=== PATIENT | male | born 1965 | race Caucasian/White ===

== ENCOUNTER 2017-08-16 19:40 | Emergency (ER) | payer OTHER ==
[2017-08-16] MEDS ORDERED: GLUCAGON 1 MG/ML VIAL IVP STA (20:00)
--- NOTE | 2017-08-16 20:01 | ED Physician Documentation ---
PD HPI CHEST PAIN - Stated complaint Stated Complaint: FB IN THROAT/SOA - Chief complaint Chief Complaint: Resp - History obtained from History obtained from: Patient - History of Present Illness Timing - onset: Other (He has a history of esophageal stenosis status post dilation about 4 years ago. He is a sinus infection and was taking some Advil p.m. tonight and feels like it is stuck, at the level of mid sternum. He is able to tolerate liquids but just barely.) Review of Systems Constitutional: denies: Fever, Chills Respiratory: denies: Dyspnea, Cough GI: denies: Abdominal Pain, Abdominal Swelling, Nausea, Vomiting PD PAST MEDICAL HISTORY - Present Medications Home Medications: Ambulatory Orders Medication Instructions Recorded Confirmed Albuterol Sulf [Ventolin Hfa 1 - 2 puffs INH Q4H 08/16/17 08/16/17 Inhaler] Amox/Clav 875/125 [Augmentin 1 tab PO BID 08/16/17 08/16/17 875/125] Beclomethasone 80 Mcg [Qvar 80] 1 puffs INH BID 08/16/17 08/16/17 Pantoprazole Sodium 40 mg PO DAILY 08/16/17 08/16/17 - Allergies Allergies/Adverse Reactions: Allergies Allergy/AdvReac Type Severity Reaction Status Date / Time No Known Drug Allergies Allergy Verified 08/16/17 19:48 - Social History Does the pt smoke?: No Smoking Status: Never smoker - Immunizations Immunizations are current?: Yes PD ED PE NORMAL - Vitals Vital signs reviewed: Yes - General General: Alert and oriented X 3, No acute distress - HEENT HEENT: Pharynx benign, Other (Voice is normal) - Cardiac Cardiac: RRR, No murmur - Respiratory Respiratory: No respiratory distress, Clear bilaterally - Abdomen Abdomen: Non tender - Neuro Neuro: Alert and oriented X 3, Normal speech Results - Vitals Vitals: Vital Signs - 24 hr 08/16/17 19:44 Temperature 36.4 C L Heart Rate 107 H Respiratory 18 Rate Blood Pressure 154/84 H O2 Saturation 98 Oxygen O2 Source Room air PD MEDICAL DECISION MAKING - ED course ED course: 51-year-old gentleman with pill esophageal foreign body, had a little relief with glucagon and then complete relief after nitroglycerin and tolerating oral fluids. He has a history of esophageal strictures and he was advised to follow- up with his GI doctor for reevaluation. - Sepsis Event Vital Signs: Vital Signs - 24 hr 08/16/17 19:44 Temperature 36.4 C L Heart Rate 107 H Respiratory 18 Rate Blood Pressure 154/84 H O2 Saturation 98 Oxygen O2 Source Room air Departure - Departure Disposition: 01 Home, Self Care Clinical Impression: Esophageal stricture, Pill esophagitis Condition: Good Record reviewed to determine appropriate education?: Yes Comments: Eat soft and liquid foods and crush your pills. Follow-up with your doctor for referral to GI. Return if worse. Your blood pressure was elevated today on check into the emergency department. This does not mean that you have hypertension, it is a common phenomenon to come to the emergency department and have elevated blood pressure. I recommend that you see your primary care physician within the week to have it rechecked when you are feeling better.
[2017-08-16] MEDS ORDERED: WATER FOR INJECTION,STERILE 10 ML ONE (20:15)
[2017-08-16] MEDS ORDERED: NITROGLYCERIN SL 0.4 MG TABLET SL STA (20:25)
[2017-08-16 21:43] VITALS: BP 142/104
== END 2017-08-16 21:43 | disposition home or self-care (01) ==
LOC: ED 19:40
DX: K22.2 Esophageal obstruction (principal); K20.8 Other esophagitis; Z87.19 Personal history of other diseases of the digestive system; R03.0 Elevated blood-pressure reading, without diagnosis of hypertension
CPT/HCPCS: 96374; 99283; A9270

== ENCOUNTER 2017-08-21 08:00 | Outpatient (CLI) | payer OTHER ==
[2017-08-21 13:03] LABS: BASOPHILS % (AUTO) 0.5 %; EOSINOPHILS % (AUTO) 0.7 %; HGB - HEMOGLOBIN 16.9 g/dL (14.0-18.0); LYMPHOCYTES # (AUTO) 0.9 10^3/uL (1.5-3.5); LYMPHOCYTES % (AUTO) 20.5 %; MEAN CORPUSCULAR HEMOGLOBIN 32.1 pg (27.0-31.0); MEAN CORPUSCULAR HGB CONC 33.6 g/dL (32.0-36.0); MEAN CORPUSCULAR VOLUME 95.5 fL (80.0-94.0); MEAN PLATELET VOLUME 9.4 fL (7.4-11.4); MONOCYTES # (AUTO) 0.3 10^3/uL (0.0-1.0); MONOCYTES % (AUTO) 7.6 %; NEUTROPHILS # (AUTO) 3.1 10^3/uL (1.5-6.6); NEUTROPHILS % (AUTO) 70.7 %; PLT - PLATELET COUNT 187 10^3/uL (130-450); RED BLOOD COUNT 5.28 10^6/uL (4.70-6.10); WHITE BLOOD COUNT 4.4 x10^3/uL (4.8-10.8)
[2017-08-21 13:21] LABS: ALBUMIN 4.7 g/dL (3.2-5.5); ALBUMIN/GLOBULIN RATIO 1.7 (1.0-2.2); ALKALINE PHOSPHATASE 59 IU/L (42-121); ALT ALANINE AMINOTRANSFERASE 23 IU/L (10-60); AST ASPARTATE AMINOTRANSFERASE 22 IU/L (10-42); BILIRUBIN,TOTAL 0.8 mg/dL (0.2-1.0); BUN - BLOOD UREA NITROGEN 17 mg/dL (6-20); CARBON DIOXIDE - CO2 28 mmol/L (21-32); CHLORIDE 102 mmol/L (101-111); CHOL/HDL RATIO 6.2 (<5.0); CHOLESTEROL 240 mg/dL; CREATININE 1.2 mg/dL (0.6-1.2); GFR - MDRD 64 (>89); GLUCOSE 119 mg/dL (70-100); HDL CHOLESTEROL 39 mg/dL; LDL CHOLESTEROL,CALCULATED 161 mg/dL; LDL/HDL RATIO 4.1 (<3.6); SODIUM 138 mmol/L (135-145); TOTAL PROTEIN 7.5 g/dL (6.7-8.2); VLDL CHOLESTEROL 40 mg/dL
== END 2017-08-21 08:01 ==
LOC: LAB.WCP 08:00
PROVIDERS: ATTEND Family Medicine
DX: I10 Essential (primary) hypertension (principal); E78.5 Hyperlipidemia, unspecified
CPT/HCPCS: 36415; 80053; 80061; 83721; 85025

== ENCOUNTER 2017-09-04 18:33 | Emergency (ER) | payer OTHER ==
--- NOTE | 2017-09-04 19:27 | ED Physician Documentation ---
PD HPI HEENT - Stated complaint Stated Complaint: FOOD STUCK IN THROAT - Chief complaint Chief Complaint: Heent - History obtained from History obtained from: Patient - History of Present Illness Timing - onset: Today Timing - duration: Hours Timing - details: Abrupt onset (Patient has a history of eosinophilic esophagitis and has been having more achalasia and difficulty swallowing for the last 3 or 4 weeks. He is worked with his primary care to try to get a referral back to gastroenterology. He had had a previous dilatation of the esophagus about 4 years ago. He had been having liquid to soft food for the last 2-3 weeks. Tonight he had very small bite of shrimp and felt like it got stuck in his throat. He denied any swelling of his lips or tongue and did not have any diffuse rash so it did not sound like allergic reaction. He is able to swallow his saliva and small sips of water. He has not had any vomiting.), Constant Location: Throat Improves: Nothing Worsens: Swalllowing Associated symptoms: No: Congestion, Unable to swallow, Facial swelling, Cough Similar symptoms before: Diagnosis (esophageal stricture.) Recently seen: Clinic (on Protonix 40 mg daily the past week.) Review of Systems Constitutional: denies: Fever, Chills, Myalgias Nose: denies: Rhinorrhea / runny nose, Congestion Throat: reports: Sore throat. denies: Oral lesions / sores Cardiac: denies: Chest pain / pressure, Palpitations Respiratory: denies: Dyspnea, Cough, Wheezing GI: denies: Nausea, Vomiting, Diarrhea Neurologic: denies: Generalized weakness, Focal weakness, Numbness, Near syncope , Altered mental status, Headache PD PAST MEDICAL HISTORY - Past Medical History Past Medical History: Yes Cardiovascular: Hypertension Respiratory: Asthma GI: Other (eosinophilic esophagitis. ) - Past Surgical History Past Surgical History: Yes General: Cholecystectomy, EGD - Present Medications Home Medications: Ambulatory Orders Medication Instructions Recorded Confirmed Albuterol Sulf [Ventolin Hfa 1 - 2 puffs INH Q4H 08/16/17 08/16/17 Inhaler] Beclomethasone 80 Mcg [Qvar 80] 1 puffs INH BID 08/16/17 08/16/17 Beclomethasone 80 Mcg [Qvar 80] 09/04/17 Budesonide 1 vial PO BID 09/04/17 Montelukast [Singulair] 1 tab PO DAILY PRN 09/04/17 - Allergies Allergies/Adverse Reactions: Allergies Allergy/AdvReac Type Severity Reaction Status Date / Time No Known Drug Allergies Allergy Verified 08/16/17 19:48 - Social History Does the pt smoke?: No Smoking Status: Never smoker Does the pt drink ETOH?: No Does the pt have substance abuse?: No - Immunizations Immunizations are current?: Yes Results - Vitals Vitals: Vital Signs - 24 hr 09/04/17 09/04/17 18:42 21:46 Temperature 37.0 C 36.5 C Heart Rate 84 60 Respiratory 18 18 Rate Blood Pressure 171/93 H 141/92 H O2 Saturation 98 100 Oxygen O2 Source Room air PD MEDICAL DECISION MAKING - ED course Complexity details: considered differential (He is not fully obstructed as he can swallow his saliva. However he as feeling a foreign body still in the throat and a feeling of a lump. It likely is a food impaction but without obstruction. We did treated with nitroglycerin for esophageal relaxation and lots of fluids. We used EZ gas crystals along with some water to try to create some esophageal dilatation. He did subsequently have a feeling of improvement in the esophageal discomfort and now just felt like a residual irritation. He likely did pass it although there is concern for potential retained food and esophageal irritation. I talked with Dr. Arevalo who is on-call for Dr. Lawrence' s group and they will try to see the patient in the next couple of days for scoping in the office.), d/w patient - Sepsis Event Vital Signs: Vital Signs - 24 hr 09/04/17 09/04/17 18:42 21:46 Temperature 37.0 C 36.5 C Heart Rate 84 60 Respiratory 18 18 Rate Blood Pressure 171/93 H 141/92 H O2 Saturation 98 100 Oxygen O2 Source Room air Departure - Departure Disposition: 01 Home, Self Care Clinical Impression: Food in esophagus causing other injury, initial encounter Condition: Stable Record reviewed to determine appropriate education?: Yes Instructions: ED Foreign Body Esophageal Rslv Follow-Up: Andrey Boss MD [Provider Admit Priv/Credential] - Comments: Liquids only for the next couple of days. Be sure to take the pantoprazole 40 mg twice daily. You can use antacid such as Maalox or Mylanta if needed for discomfort. The gastroenterology group will call you in the next day or 2 for follow-up appointment hopefully this week or early next week. Return if unable to swallow, vomiting, increased pain, other concerns. Hopefully the main food has passed and now is left with just an irritation. Discharge Date/Time: 09/04/17 22:33
[2017-09-04] MEDS ORDERED: DEXAMETHASONE 10 MG/ML VIAL IVP STA (19:56)
[2017-09-04] MEDS ORDERED: NITROGLYCERIN SL 0.4 MG TABLET SL STA (19:56)
[2017-09-04] MEDS ORDERED: SODIUM CHLORIDE 0.9% 1,000 ML IV ONE (19:56)
[2017-09-04 21:47] VITALS: BP 141/92
== END 2017-09-04 22:33 | disposition home or self-care (01) ==
LOC: ED 18:33
DX: T18.128A Food in esophagus causing other injury, initial encounter (principal); K20.0 Eosinophilic esophagitis; I10 Essential (primary) hypertension
CPT/HCPCS: 96361; 96374; 99283; 99284; A9270

== ENCOUNTER 2017-10-23 09:05 | Outpatient (CLI) | payer OTHER | END 2017-10-23 09:06 | disposition home or self-care (01) | LOC: DI 09:05 | PROVIDERS: ATTEND Internal Medicine Gastroenterology | DX: Z53.9 Procedure and treatment not carried out, unspecified reason (principal) ==

== ENCOUNTER 2018-09-12 07:03 | Emergency (ER) | payer BC, OTHER ==
[2018-09-12] MEDS ORDERED: ALBUTEROL NEB 2.5 MG/3 ML INH STA (07:43)
[2018-09-12] MEDS ORDERED: MAG HYDROX/AL HYDROX/SIMETH 30 ML UDC PO STA (07:44)
[2018-09-12] MEDS ORDERED: LIDOCAINE VISCOUS 2% 15 ML UDC MM STA (07:44)
--- NOTE | 2018-09-12 07:44 | ED Physician Documentation ---
PD HPI CHEST PAIN - Stated complaint Stated Complaint: HIGH BP/CHEST PAIN - History obtained from History obtained from: Patient - History of Present Illness Timing - onset: How many weeks ago (4) Timing - onset during: Sleep, Light activity (He has had episodes of substernal chest pressure associated with dyspnea both at rest and with activity. He states he does feel short of breath easily over the last several weeks. He had noticed some ringing in his ears and a pressure feeling in his head at times and noted his blood pressure to be elevated with those. He was seen by his primary care last week and had a refill of his albuterol inhaler. He does take regular inhalers for his asthma. He was noted to have high blood pressure and restarted on lisinopril that he had taken in the past but has been off of it because his pressure had been better. He has been on lisinopril again for only 3 days. He noticed a feeling of ringing in his ears this morning and took his blood pressure with it 180/110. This concerned him and he came in for evaluation. He did have some chest pressure this morning as well.) Timing - duration: Weeks (4) Timing - details: Gradual onset, Intermittant Quality: Pressure, Tightness Location: Substernal Radiation: No: Neck, Back Worsened by: Exertion Associated symptoms: Shortness of air, Cough. No: Nausea, Vomiting, Feeling faint / dizzy, Palpitations Similar symptoms before: Diagnosis (asthma, high blood pressure. No history of CAD/CHF.) Recently seen: Clinic Review of Systems Constitutional: denies: Fever, Chills, Myalgias Nose: denies: Rhinorrhea / runny nose, Congestion Throat: denies: Sore throat Cardiac: reports: Chest pain / pressure. denies: Palpitations, Pedal edema, Calf pain Respiratory: reports: Dyspnea, Cough, Wheezing GI: denies: Abdominal Pain, Nausea, Vomiting, Diarrhea Musculoskeletal: denies: Back pain Neurologic: denies: Focal weakness, Numbness, Near syncope PD PAST MEDICAL HISTORY - Past Medical History Cardiovascular: Hypertension Respiratory: Asthma GI: Other (eosinophilic esophagitis. ) - Past Surgical History Past Surgical History: Yes General: Cholecystectomy, EGD - Present Medications Home Medications: Ambulatory Orders Medication Instructions Recorded Confirmed Albuterol Sulf [Ventolin Hfa 1 - 2 puffs INH Q4H 08/16/17 08/16/17 Inhaler] Montelukast [Singulair] 1 tab PO DAILY PRN 09/04/17 Fluticasone Propion/Salmeterol 09/12/18 [[place]ela 250-50 Inhub] Lisinopril 10 mg PO DAILY 09/12/18 09/12/18 Pantoprazole Sodium [Protonix] 40 mg DAILY 09/12/18 09/12/18 Tiotropium [place] [Spiriva 09/12/18 Respimat] dexAMETHasone [Decadron] 4 mg PO DAILY #7 tablet 09/12/18 raNITIdine [Zantac] 1 tab BID 09/12/18 09/12/18 - Allergies Allergies/Adverse Reactions: Allergies Allergy/AdvReac Type Severity Reaction Status Date / Time No Known Drug Allergies Allergy Verified 09/12/18 07:54 - Social History Does the pt smoke?: No Smoking Status: Never smoker Does the pt drink ETOH?: No Does the pt have substance abuse?: No - Immunizations Immunizations are current?: Yes PD ED PE NORMAL - Vitals Vital signs reviewed: Yes - General General: Alert and oriented X 3, No acute distress (but somewhat anxious), Well developed/nourished - HEENT HEENT: Pharynx benign - Neck Neck: Supple, no meningeal sign, No adenopathy, No JVD - Cardiac Cardiac: RRR, No murmur - Respiratory Respiratory: No respiratory distress, Other (decreased exp tidal volume but not wheezing per se. ) - Abdomen Abdomen: Soft, Non tender - Back Back: No CVA TTP - Derm Derm: Normal color, Warm and dry - Extremities Extremities: No deformity, No tenderness to palpate, Normal ROM s pain, No edema, No calf tenderness / cord - Neuro Neuro: Alert and oriented X 3, No motor deficit, Normal speech Results - Vitals Vitals: Vital Signs - 24 hr 09/12/18 09/12/18 09/12/18 07:10 08:06 08:35 Temperature 36.8 C Heart Rate 73 74 69 Respiratory 10 L 14 16 Rate Blood Pressure 164/105 H 153/93 H O2 Saturation 96 100 09/12/18 09/12/18 09/12/18 09:28 09:37 09:55 Temperature Heart Rate 94 95 91 Respiratory 18 18 18 Rate Blood Pressure 146/83 H 149/88 H 147/92 H O2 Saturation 99 98 98 Oxygen O2 Source Room air - EKG (time done) 07:05 Rate: Rate (enter#) (97) Rhythm: NSR [place]: Normal Intervals: Normal [place] QRS: Normal Ischemia: Normal ST segments. No: ST elevation c/w ischemia, ST depression - Labs Labs: Laboratory Tests 09/12/18 09/12/18 09/12/18 08:12 08:12 08:12 WBC 5.2 RBC 5.09 Hgb 16.1 Hct 48.2 MCV 94.7 H MCH 31.6 H MCHC 33.4 RDW 12.7 Plt Count 193 MPV 10.1 Neut # (Auto) 4.3 Lymph # (Auto) 0.7 L [place] # (Auto) 0.3 Eos # (Auto) 0.0 Baso # (Auto) 0.0 Absolute Nucleated RBC 0.00 Nucleated RBC % 0.0 Sodium 141 Potassium 4.0 Chloride 105 Carbon Dioxide 23 Anion Gap 13.0 BUN 19 Creatinine 1.3 H Estimated GFR (MDRD) 58 L Glucose 116 H Calcium 9.4 Magnesium 2.4 Total Bilirubin 0.9 AST 23 ALT 25 Alkaline Phosphatase 58 Troponin I B-Natriuretic Peptide 23 Total Protein 7.3 Albumin 4.4 Globulin 2.9 Albumin/Globulin Ratio 1.5 Lipase 28 09/12/18 08:12 WBC RBC Hgb Hct MCV MCH MCHC RDW Plt Count MPV Neut # (Auto) Lymph # (Auto) [place] # (Auto) Eos # (Auto) Baso # (Auto) Absolute Nucleated RBC Nucleated RBC % Sodium Potassium Chloride Carbon Dioxide Anion Gap BUN Creatinine Estimated GFR (MDRD) Glucose Calcium Magnesium Total Bilirubin AST ALT Alkaline Phosphatase Troponin I < 0.04 B-Natriuretic Peptide Total Protein Albumin Globulin Albumin/Globulin Ratio Lipase - Rads (name of study) chest xray Radiology: Prelim report reviewed, EMP read contemporaneously (normal), See rad report PD MEDICAL DECISION MAKING - ED course Complexity details: re-evaluated patient (I think his chest discomfort with activity and feeling of dyspnea are more bronchial and airway. I would add oral steroids. He has a renewed albuterol inhaler that he was using as needed and I would have him use that regularly 4 times a day for the next week. Could consider anginal equivalent of exertional dyspnea and so he is to follow-up with his primary care. They could consider the idea of an echo or stress test.), considered differential (He was given a GI cocktail with lidocaine and Mylanta without any change in the discomfort. He is given albuterol treatment which helped moderately with his feeling of dyspnea and chest pressure. He states he still had a little bit residual. His blood pressure had come down on its own to a reasonable level but still slightly elevated at 150/100. Subsequently gave her nitroglycerin sublingually and that did bring the pressure down a little bit more but he did not notice any change in the residual chest tightness. He told the nurse he felt that the albuterol nebulizer did the most effectiveness.), d/w patient Departure - Departure Disposition: 01 Home, Self Care Clinical Impression: Elevated blood pressure reading, Chest tightness Condition: Stable Record reviewed to determine appropriate education?: Yes Instructions: ED Dyspnea Shortness of Breath Follow-Up: Tomas Montaño DO [Primary Care Provider] - Prescriptions: dexAMETHasone [Decadron] 4 mg PO DAILY #7 tablet Comments: Your EKG chest x-ray and blood tests are normal. No signs of heart attack or heart failure. I think your symptoms sound most likely to be some inflammation through the airways and also some around the lung causing the discomfort in the tightness. Continue your albuterol inhaler 2 puffs 4 times a day for the next week. Continue your other medications as usual. Add Decadron steroid anti- inflammatory for a week to help reduce airway inflammation. See how much improvement you have. Follow-up with your primary care likely next week. At that point we will see how the blood pressure medicine is doing and if it needs increasing or changing. If you continue having the chest discomfort and shortness of breath, they your primary care might consider doing a stress test or ultrasound of your heart to better assess that possibility. Discharge Date/Time: 09/12/18 09:56
[2018-09-12 08:22] LABS: BASOPHILS % (AUTO) 0.2 %; EOSINOPHILS % (AUTO) 0.2 %; HGB - HEMOGLOBIN 16.1 g/dL (14.0-18.0); LYMPHOCYTES # (AUTO) 0.7 10^3/uL (1.5-3.5); LYMPHOCYTES % (AUTO) 12.8 %; MEAN CORPUSCULAR HEMOGLOBIN 31.6 pg (27.0-31.0); MEAN CORPUSCULAR HGB CONC 33.4 g/dL (32.0-36.0); MEAN CORPUSCULAR VOLUME 94.7 fL (80.0-94.0); MEAN PLATELET VOLUME 10.1 fL (7.4-11.4); MONOCYTES # (AUTO) 0.3 10^3/uL (0.0-1.0); MONOCYTES % (AUTO) 5.2 %; NEUTROPHILS # (AUTO) 4.3 10^3/uL (1.5-6.6); NEUTROPHILS % (AUTO) 81.4 %; PLT - PLATELET COUNT 193 10^3/uL (130-450); RED BLOOD COUNT 5.09 10^6/uL (4.70-6.10); RED CELL DISTRIBUTION WIDTH 12.7 % (12.0-15.0); WHITE BLOOD COUNT 5.2 x10^3/uL (4.8-10.8)
[2018-09-12 08:37] LABS: ALBUMIN 4.4 g/dL (3.2-5.5); ALBUMIN/GLOBULIN RATIO 1.5 (1.0-2.2); BILIRUBIN,TOTAL 0.9 mg/dL (0.2-1.0); CALCIUM 9.4 mg/dL (8.5-10.3); CREATININE 1.3 mg/dL (0.6-1.2); MAGNESIUM 2.4 mg/dL (1.7-2.8); TOTAL PROTEIN 7.3 g/dL (6.7-8.2)
[2018-09-12] MEDS ORDERED: NITROGLYCERIN SL 0.4 MG TABLET SL STA (09:07)
[2018-09-12] MEDS ORDERED: NAPROXEN 250 MG TABLET PO STA (09:07)
--- NOTE | 2018-09-12 09:23 | XRAY Report ---
Reason: dyspnea/ cough Procedure Date: 09/12/2018 Accession Number: [id number] / [id number] Procedure: XR - Chest 2 View X-Ray CPT Code: 34373 FULL RESULT: EXAM: CHEST RADIOGRAPHY, 2 VIEWS EXAM DATE: 09/12/2018 08:00 AM. CLINICAL HISTORY: Dyspnea with cough in a 52-year-old male. COMPARISON: None. TECHNIQUE: Upright PA and lateral views. FINDINGS: Lungs/Pleura: No focal opacities evident. No pleural effusion. No pneumothorax. Moderately suboptimal inspiratory effort.. Mediastinum: Heart size normal, without pulmonary vascular congestion or adenopathy. Other: Trachea is midline. Osseous structures are unremarkable for age. IMPRESSION: Normal chest for age and body size. No pneumonia, CHF or other demonstrated cause for the patient's symptoms. RAD[facility]
[2018-09-12] MEDS ORDERED: CHERRY SYRUP 10 ML UDC PO ONE (09:38)
[2018-09-12] MEDS ORDERED: DEXAMETHASONE 10 MG/ML VIAL PO STA (09:38)
[2018-09-12 09:56] VITALS: BP 147/92
== END 2018-09-12 09:56 | disposition home or self-care (01) ==
LOC: ED 07:03
DX: I10 Essential (primary) hypertension (principal); R07.89 Other chest pain
CPT/HCPCS: 36415; 71046; 80053; 83690; 83735; 83880; 84484; 85025; 93005; 99283; A9270

== ENCOUNTER 2018-09-28 03:16 | Emergency (ER) | payer BC ==
[2018-09-28] MEDS ORDERED: SODIUM CHLORIDE 0.9% 1,000 ML IV ONE ×2 (03:41→04:51)
[2018-09-28] MEDS ORDERED: KETOROLAC 30 MG/ML VIAL IVP STA (03:41)
[2018-09-28] MEDS ORDERED: ONDANSETRON 4 MG/2 ML VIAL IVP STA (03:41)
[2018-09-28 03:45] LABS: BASOPHILS % (AUTO) 0.1 %; EOSINOPHILS % (AUTO) 0.3 %; HGB - HEMOGLOBIN 15.7 g/dL (14.0-18.0); LYMPHOCYTES # (AUTO) 1.5 10^3/uL (1.5-3.5); LYMPHOCYTES % (AUTO) 16.6 %; MEAN CORPUSCULAR HGB CONC 32.7 g/dL (32.0-36.0); MEAN CORPUSCULAR VOLUME 94.7 fL (80.0-94.0); MEAN PLATELET VOLUME 9.9 fL (7.4-11.4); MONOCYTES # (AUTO) 0.7 10^3/uL (0.0-1.0); NEUTROPHILS # (AUTO) 6.8 10^3/uL (1.5-6.6); NEUTROPHILS % (AUTO) 74.7 %; PLT - PLATELET COUNT 203 10^3/uL (130-450); RED BLOOD COUNT 5.07 10^6/uL (4.70-6.10); RED CELL DISTRIBUTION WIDTH 13.3 % (12.0-15.0); WHITE BLOOD COUNT 9.1 x10^3/uL (4.8-10.8)
--- NOTE | 2018-09-28 03:45 | ED Physician Documentation ---
PD HPI ABD PAIN - Stated complaint Stated Complaint: LRQ PX - Chief complaint Chief Complaint: Abd Pain - History obtained from History obtained from: Patient - History of Present Illness Timing - onset: Enter time (2199), Last night Timing - duration: Hours Timing - details: Gradual onset, Still present Quality: Sharp, Pain Location: RLQ Radiation: Right flank Improved by: Other (nothing) Worsened by: Other (nothing) Associated symptoms: Nausea. No: Vomiting, Diarrhea, Constipation, Chest pain Similar symptoms before: Has not had sx before Recently seen: Emergency Dept - Additional information Additional information: Previously well 52 y/o male with history of jaylene, eosinophilic esophagitis, HTN and asthma has developed acute right lower quadrant abdominal pain. He states that this initially started about 6 or 7 hours ago he felt that maybe he had strained himself he had pain in his side and the pain is more localized now in the right lower quadrant. He is not able to get comfortable with any positioning and the pain is not made worse by anything he just has bad pain. He has some nausea he has not vomited. He has not had fever. He has not had pain like this previously. Review of Systems Constitutional: denies: Fever, Chills, Myalgias Eyes: denies: Decreased vision Ears: denies: Ear pain Nose: denies: Rhinorrhea / runny nose, Congestion Throat: denies: Sore throat Cardiac: denies: Chest pain / pressure, Palpitations Respiratory: denies: Dyspnea, Cough GI: reports: Abdominal Pain, Nausea. denies: Vomiting, Constipation, Diarrhea : denies: Dysuria, Frequency Skin: denies: Rash Musculoskeletal: reports: Back pain. denies: Neck pain, Extremity pain Neurologic: denies: Generalized weakness, Focal weakness, Numbness PD PAST MEDICAL HISTORY - Past Medical History Past Medical History: Yes Cardiovascular: Hypertension Respiratory: Asthma GI: Other - Past Surgical History Past Surgical History: Yes General: Cholecystectomy, EGD - Present Medications Home Medications: Ambulatory Orders Medication Instructions Recorded Confirmed Albuterol Sulf [Ventolin Hfa 1 - 2 puffs INH Q4H 08/16/17 08/16/17 Inhaler] Montelukast [Singulair] 1 tab PO DAILY PRN 09/04/17 Fluticasone Propion/Salmeterol 09/12/18 [Wixela 250-50 Inhub] Lisinopril 10 mg PO DAILY 09/12/18 09/12/18 Pantoprazole Sodium [Protonix] 40 mg DAILY 09/12/18 09/12/18 Tiotropium [place] [Spiriva 09/12/18 Respimat] dexAMETHasone [Decadron] 4 mg PO DAILY #7 tablet 09/12/18 raNITIdine [Zantac] 1 tab BID 09/12/18 09/12/18 Hydrocodone/Acetaminophen 1 - 2 each PO Q6H PRN #14 tablet 09/28/18 [Hydrocodon-Acetaminophen 5-325] - Allergies Allergies/Adverse Reactions: Allergies Allergy/AdvReac Type Severity Reaction Status Date / Time No Known Drug Allergies Allergy Verified 09/28/18 03:22 - Social History Does the pt smoke?: No Smoking Status: Never smoker Does the pt drink ETOH?: No Does the pt have substance abuse?: No - Immunizations Immunizations are current?: Yes - POLST Patient has POLST: No PD ED PE NORMAL - Vitals Vital signs reviewed: Yes (marked hypertension ) - General General: Alert and oriented X 3, Well developed/nourished, Other (appears uncomfortable diaphoretic and clutching the right lower quadrant. He is pushing very hard on the RLQ) - HEENT HEENT: Atraumatic, PERRL, EOMI - Neck Neck: Supple, no meningeal sign - Cardiac Cardiac: RRR, No murmur - Respiratory Respiratory: No respiratory distress, Clear bilaterally - Abdomen Abdomen: Normal bowel sounds, Soft, Non tender, Non distended, No organomegaly, Other (There is no guarding or rebound tenderness. The pain is localized to the RLQ but without tenderness. ) - Back Back: No CVA TTP, No spinal TTP - Derm Derm: Normal color, Warm and dry, No rash - Extremities Extremities: No deformity, No edema - Neuro Neuro: Alert and oriented X 3, home hospice aide 2-12 intact, No motor deficit, No sensory deficit, Normal speech Eye Opening: Spontaneous Motor: Obeys Commands Verbal: Oriented GCS Score: 15 - Psych Psych: Normal mood, Normal affect Results - Vitals Vitals: Vital Signs - 24 hr 09/28/18 09/28/18 03:18 05:20 Temperature 36.4 C L Heart Rate 69 67 Respiratory 20 16 Rate Blood Pressure 187/112 H 154/88 H O2 Saturation 98 93 Oxygen O2 Source Room air - Labs Labs: Laboratory Tests 09/28/18 09/28/18 09/28/18 03:30 03:30 06:10 WBC 9.1 RBC 5.07 Hgb 15.7 Hct 48.0 MCV 94.7 H MCH 31.0 MCHC 32.7 RDW 13.3 Plt Count 203 MPV 9.9 Neut # (Auto) 6.8 H Lymph # (Auto) 1.5 [place] # (Auto) 0.7 Eos # (Auto) 0.0 Baso # (Auto) 0.0 Absolute Nucleated RBC 0.00 Nucleated RBC % 0.0 Sodium 142 Potassium 3.4 L Chloride 101 Carbon Dioxide 23 Anion Gap 18.0 H BUN 21 H Creatinine 1.4 H Estimated GFR (MDRD) 53 L Glucose 157 H Calcium 9.4 Total Bilirubin 1.7 H AST 30 ALT 28 Alkaline Phosphatase 55 Total Protein 7.7 Albumin 4.7 Globulin 3.0 Albumin/Globulin Ratio 1.6 Lipase 27 Urine Color YELLOW Urine Clarity CLEAR Urine pH 5.5 Ur Specific [place] 1.025 Urine Protein NEGATIVE Urine Glucose (UA) NEGATIVE Urine Ketones 40 H Urine Occult Blood SMALL H Urine Nitrite NEGATIVE Urine Bilirubin NEGATIVE Urine Urobilinogen 0.2 (NORMAL) Ur Leukocyte Esterase NEGATIVE Urine RBC 0-5 Urine WBC 0-3 Ur Squamous Epith Cells NONE SEEN Urine Bacteria Rare Urine Mucus Marked Strands Ur Microscopic Review INDICATED Urine Culture Comments NOT INDICATED - Rads (name of study) CT abdomen/pel without Radiology: Prelim report reviewed (Impression: 4 mm calculus in the right ureterovesicular junction, producing right hydronephrosis and perinephric st randing. 2 nonobstructing left renal calculi, measuring 1 and 2 mm. Okay), EMP read indepedently (On my read there appears to be calcifications in the coronary area as an incidental finding.), See rad report Procedures - Bedside sono Bedside sono by EMP: With use of bedside ultrasound the right kidney is imaged there is evidence of hydronephrosis and the kidney is sonographically nontender. PD MEDICAL DECISION MAKING - ED course Complexity details: reviewed old records, reviewed results, re-evaluated patient, considered differential, d/w patient ED course: Previously well 52-year-old male has developed acute right lower quadrant a bdominal pain he appears very uncomfortable on arrival to the emergency department. He is clutching his lower abdomen and pushing very hard in the right lower quadrant. He does not have specific tenderness there. He has evidence of hydronephrosis on bedside ultrasound examination. I suspect he has kidney stone and an IV line is begun he is administered a liter of saline 30 mg of Toradol and 4 mg of Zofran and a CT scan of the abdomen pelvis is undertaken without contrast. Patient does not have much relief with use of the Toradol he subsequently given a milligram of Dilaudid with some improvement and a second milligram with further improvement. He does have a 4 mm stone at the UVJ. The patient has been having issues with atypical chest pain and hypertension and on evaluation of his CT scan there does appear to be coronary calcifications and I have encouraged the patient to ask his primary care doctor to schedule an exercise treadmill test. Departure - Departure Disposition: 01 Home, Self Care Clinical Impression: Ureterolithiasis Condition: Stable Instructions: ED Stone Renal W Colic Follow-Up: Tomas Montaño DO [Primary Care Provider] - Prescriptions: Hydrocodone/Acetaminophen [Hydrocodon-Acetaminophen 5-325] 1 - 2 each PO Q6H PRN #14 tablet PRN Reason: pain Comments: Today on your CT scan there are 2 other stones in the left kidney that will eventually pass. These are smaller and may cause lesser pain of a transient nature. In addition there appears to be calcification in the coronary arteries. An exercise treadmill test is indicated. Talk to Dr. Graham about having this test scheduled.
[2018-09-28 03:54] LABS: ALBUMIN 4.7 g/dL (3.2-5.5); ALBUMIN/GLOBULIN RATIO 1.6 (1.0-2.2); BILIRUBIN,TOTAL 1.7 mg/dL (0.2-1.0); CALCIUM 9.4 mg/dL (8.5-10.3); CREATININE 1.4 mg/dL (0.6-1.2); TOTAL PROTEIN 7.7 g/dL (6.7-8.2)
[2018-09-28] MEDS ORDERED: HYDROmorphone 1 MG/ML CARPUJECT IVP STA ×3 (03:58→05:16)
--- NOTE | 2018-09-28 04:35 | CT Report ---
Reason: RLQ pain R hydro on bedside Procedure Date: 09/28/2018 Accession Number: [id number] / [id number] Procedure: CT - Abdomen/Pelvis WO CPT Code: FULL RESULT: EXAM: CT ABDOMEN AND PELVIS (CT KUB) EXAM DATE: 09/28/2018 04:26 AM. CLINICAL HISTORY: RLQ pain R hydro on bedside. COMPARISONS: None. TECHNIQUE: Routine axial helical CT imaging was performed through the abdomen and pelvis without IV contrast. Reconstructions: Coronal and sagittal. In accordance with CT protocol optimization, one or more of the following dose reduction techniques were utilized for this exam: automated exposure control, adjustment of mA and/or KV based on patient size, or use of iterative reconstructive technique. FINDINGS: Lung Bases: Unremarkable. Right Kidney/Ureter: Right hydronephrosis and hydroureter to the bladder base, where there is a 4 mm calculus at the right ureterovesicular junction. Right perinephric stranding. Left Kidney/Ureter: 2 nonobstructing left renal calculi, measuring 1 and 2 mm. No hydronephrosis. Other Solid Organs: Noncontrast images of the solid organs are grossly unremarkable. Gallbladder/Bile Ducts: Postoperative changes of cholecystectomy. No biliary dilatation. Peritoneal Cavity: No free fluid, free air or maru adenopathy. Bowel is grossly unremarkable. Normal appendix. Pelvic Organs: No bladder stones or wall thickening. Noncontrast images of the visualized pelvic organs are unremarkable. Vasculature: Unremarkable. Other: None. IMPRESSION: 4 mm calculus in the right ureterovesicular junction, producing right hydronephrosis and perinephric stranding. 2 nonobstructing left renal calculi, measuring 1 and 2 mm. RADIA
[2018-09-28 06:19] LABS: BILIRUBIN,URINE NEGATIVE (NEGATIVE); GLUCOSE, URINE (UA) NEGATIVE (NEGATIVE); KETONES,URINE (UA) 40 mg/dL (NEGATIVE); LEUKOCYTE ESTERASE, URINE NEGATIVE (NEGATIVE); NITRITE,URINE NEGATIVE (NEGATIVE); OCCULT BLOOD,URINE SMALL (NEGATIVE); PH,URINE 5.5 PH (5.0-7.5); PROTEIN,URINE NEGATIVE (NEGATIVE); UROBILINOGEN,URINE 0.2 (NORMAL) E.U./dL (NORMAL)
[2018-09-28 06:20] LABS: CLARITY,URINE CLEAR (CLEAR)
[2018-09-28 06:25] LABS: BACTERIA,URINE Rare /HPF (None Seen); MUCUS,URINE Marked Strands; RBC,URINE 0-5 /HPF (0-5); SQUAMOUS EPITHELIAL CELL,UR NONE SEEN (<= Few)
[2018-09-28 06:40] VITALS: BP 159/91
== END 2018-09-28 06:49 | disposition home or self-care (01) ==
LOC: ED 03:16
DX: N13.2 Hydronephrosis with renal and ureteral calculous obstruction (principal); R07.89 Other chest pain; I25.10 Atherosclerotic heart disease of native coronary artery without angina pectoris; I10 Essential (primary) hypertension; J45.909 Unspecified asthma, uncomplicated; Z87.19 Personal history of other diseases of the digestive system; Z90.49 Acquired absence of other specified parts of digestive tract
CPT/HCPCS: 36415; 74176; 80053; 81001; 83690; 85025; 96361; 96374; 96375; 96376; 99284; 99285; J1170; 81003; 87086

== ENCOUNTER 2018-10-04 17:22 | Outpatient (CLI) | payer BC ==
--- NOTE | 2018-10-05 11:38 | Ultrasound Report ---
Reason: KIDNEY STONE Procedure Date: 10/04/2018 Accession Number: [id number] / [id number] Procedure: US - Retroperitoneal CPT Code: FULL RESULT: EXAM: RENAL ULTRASOUND EXAM DATE: 10/04/2018 05:59 PM. CLINICAL HISTORY: Kidney stone. COMPARISON: ABDOMEN/PELVIS W/O 09/28/2018 4:16 AM. TECHNIQUE: Real-time scanning was performed with static images obtained. FINDINGS: Right Kidney: 10.9 cm. No dilated right ureter. Mild right pelviectasis. No solid mass or stone. 2 x 1.7 x 1.5 cm anechoic inferior right renal cyst. No concerning features. Left Kidney: 12.3 cm. Mild left pelviectasis. No maru left hydronephrosis or contour deforming renal mass. 2 echogenic shadowing foci measuring 0.8 cm and 0.6 cm respectively compatible with renal stones. Bladder: Bilateral jets seen. The prevoid bladder volume was 217.5 cc. The postvoid bladder volume was 60.5 cc. Other: Study limited by body habitus. IMPRESSION: 1. No hydronephrosis. Mild bilateral pelviectasis. No contour deforming renal masses. 2. Nonobstructing 0.8 cm and 0.6 cm left renal stones. No right-sided renal stones. 3. Normal bladder. 4. Study limited by body habitus. RADIA
== END 2018-10-04 17:23 | disposition home or self-care (01) ==
LOC: DI 17:22
PROVIDERS: ATTEND Family Medicine
DX: N20.0 Calculus of kidney (principal)
CPT/HCPCS: 76770

== ENCOUNTER 2019-01-17 08:52 | Outpatient (CLI) | payer BC ==
--- NOTE | 2019-01-17 13:51 | XRAY Report ---
Reason: RIGHT ROTATOR CUFF TEAR Procedure Date: 01/17/2019 Accession Number: [id number] / [id number] Procedure: WCP - Shoulder 2 View RT CPT Code: Final Report FULL RESULT: EXAM: RIGHT SHOULDER RADIOGRAPHY EXAM DATE: 01/17/2019 08:52 AM. CLINICAL HISTORY: Right rotator cuff tear. COMPARISON: None. TECHNIQUE: 2 views. FINDINGS: Bones: Normal. No fracture or bone lesion. Joints: The glenohumeral and acromioclavicular joints are normal. Soft tissues: The visualized hemithorax is unremarkable. No soft tissue swelling. IMPRESSION: No acute fracture or dislocation is identified. RADIA
== END 2019-01-17 23:59 | disposition home or self-care (01) ==
LOC: DI.WCP 08:52
PROVIDERS: ATTEND Family Medicine
DX: M75.101 Unspecified rotator cuff tear or rupture of right shoulder, not specified as traumatic (principal)

== ENCOUNTER 2019-05-01 08:46 | Outpatient (CLI) | payer OTHER ==
--- NOTE | 2019-05-01 11:42 | MRI Report ---
Reason: RT SHOULDER PAIN Procedure Date: 05/01/2019 Accession Number: [id number] / [id number] Procedure: MRI - Shoulder RT W/O CPT Code: Final Report FULL RESULT: EXAM: RIGHT SHOULDER MRI WITHOUT CONTRAST EXAM DATE: 05/01/2019 10:03 AM. CLINICAL HISTORY: Right shoulder pain. COMPARISON: SHOULDER 2 VIEW RT 01/17/2019 8:34 AM. TECHNIQUE: Multiplanar, multisequence T1-weighted and fluid-sensitive sequences of the shoulder without contrast. Other: None. FINDINGS: Rotator cuff: Ill-defined partial-thickness distal articular surface tear of the supraspinatus measures approximately 1 cm in the medial to lateral and anteroposterior dimensions involving slightly less than 50% of the thickness of the distal tendon. There is patchy increased T2 signal throughout the majority of the distal supraspinatus. 0.3 cm focus of low-grade intrasubstance insertional tear of the infraspinatus. No full-thickness rotator cuff tear. No significant rotator cuff muscle atrophy. Long head biceps tendon: Intact demonstrating normal course, signal and morphology. Labrum: Intact. No tear is identified. Bones and articular surfaces: No significant articular cartilage defects are seen. There is thickening and increased T2 signal involving the axillary joint capsule with ill definition at the humeral attachment. Acromioclavicular joint: Moderate degenerative change. Type II acromion. IMPRESSION: 1. Low-grade partial-thickness ill-defined distal articular surface tear of the supraspinatus with moderate supraspinatus tendinosis. 2. Moderate degenerative change at the acromioclavicular joint. 3. Thickening and edema of the axillary joint capsule which may reflect capsular sprain, adhesive capsulitis. RADIA
== END 2019-05-01 08:47 | disposition home or self-care (01) ==
LOC: DI 08:46
PROVIDERS: ATTEND Orthopaedic Surgery Sports Medicine
DX: M75.111 Incomplete rotator cuff tear or rupture of right shoulder, not specified as traumatic (principal); M19.011 Primary osteoarthritis, right shoulder; R60.0 Localized edema

== ENCOUNTER 2019-05-16 18:25 | Emergency (ER) | payer BC, OTHER ==
[2019-05-16] MEDS ORDERED: HYDROmorphone 1 MG/ML SYRINGE IVP STA ×3 (18:41→19:40)
[2019-05-16] MEDS ORDERED: ONDANSETRON 4 MG/2 ML VIAL IVP STA (18:41)
[2019-05-16] MEDS ORDERED: SODIUM CHLORIDE 0.9% 1,000 ML IV ONE (18:41)
[2019-05-16] MEDS ORDERED: KETOROLAC 30 MG/ML VIAL IVP STA (18:41)
--- NOTE | 2019-05-16 18:44 | ED Physician Documentation ---
PD HPI ABD PAIN - Stated complaint Stated Complaint: LT SIDE ABD/BACK PX - Chief complaint Chief Complaint: Abd Pain - History obtained from History obtained from: Patient - History of Present Illness Timing - onset: Today (53-year-old gentleman with history of renal colic, had a CT last year showing known left-sided nephroliths. About 40 minutes ago developed severe sudden onset left flank pain radiating to the left groin. No nausea at this juncture. Pain is severe and unremitting. It is similar to prior renal colic albeit on the opposite side from his prior attack.) Review of Systems Ten Systems: 10 systems reviewed and negative Constitutional: reports: Sweats. denies: Fever, Chills GI: reports: Abdominal Pain. denies: Nausea, Vomiting, Constipation, Diarrhea : denies: Dysuria, Frequency, Hesitancy, Incontinent, Hematuria PD PAST MEDICAL HISTORY - Past Medical History Cardiovascular: Hypertension Respiratory: Asthma GI: Other - Past Surgical History Past Surgical History: Yes General: Cholecystectomy, EGD - Present Medications Home Medications: Ambulatory Orders Medication Instructions Recorded Confirmed Montelukast [Singulair] 1 tab PO DAILY PRN 09/04/17 Aspirin 81 mg PO 05/16/19 Betablocker 05/16/19 Ibuprofen 100 mg PO 05/16/19 Ibuprofen [Motrin] 800 mg PO Q8H PRN #30 tablet 05/16/19 Oxycodone HCl/Acetaminophen 1 - 2 each PO Q6H PRN #20 tablet 05/16/19 [Percocet 5-325 mg Tablet] Tamsulosin [Flomax] 0.4 mg PO DAILY #14 capsule 05/16/19 Water Pill 05/16/19 - Allergies Allergies/Adverse Reactions: Allergies Allergy/AdvReac Type Severity Reaction Status Date / Time cigarette smoke AdvReac Respiratory Verified 05/16/19 19:06 cats/dogs Allergy Respiratory Uncoded 05/16/19 19:06 - Social History Does the pt smoke?: No Smoking Status: Never smoker Does the pt drink ETOH?: No Does the pt have substance abuse?: No - Family History Family history: reports: Non contributory - Immunizations Immunizations are current?: Yes - POLST Patient has POLST: No PD ED PE NORMAL - Vitals Vital signs reviewed: Yes - General General: Alert and oriented X 3, Other (He appears uncomfortable, pacing in pain.) - Cardiac Cardiac: RRR, No murmur - Respiratory Respiratory: No respiratory distress, Clear bilaterally - Abdomen Abdomen: Normal bowel sounds, Soft, Non tender - Back Back: No CVA TTP, No spinal TTP - Derm Derm: Normal color, Warm and dry - Neuro Neuro: Alert and oriented X 3, No motor deficit, No sensory deficit, Normal speech Results - Vitals Vitals: Vital Signs - 24 hr 05/16/19 05/16/19 05/16/19 18:28 19:25 19:48 Temperature 36.4 C L Heart Rate 90 84 Respiratory 22 24 20 Rate Blood Pressure 166/33 H 193/117 H O2 Saturation 99 99 05/16/19 05/16/19 05/16/19 20:00 20:28 20:47 Temperature Heart Rate 78 78 Respiratory 18 20 19 Rate Blood Pressure 180/111 H 146/96 H O2 Saturation 99 95 Oxygen O2 Source Room air - Labs Labs: Laboratory Tests 05/16/19 05/16/19 05/16/19 18:10 18:50 18:50 WBC 7.3 RBC 4.83 Hgb 15.4 Hct 45.7 MCV 94.6 H MCH 31.9 H MCHC 33.7 RDW 13.0 Plt Count 235 MPV 10.7 Neut # (Auto) 4.0 Lymph # (Auto) 2.4 [place] # (Auto) 0.7 Eos # (Auto) 0.2 Baso # (Auto) 0.0 Absolute Nucleated RBC 0.00 Nucleated RBC % 0.0 Sodium 139 Potassium 3.0 L Chloride 99 L Carbon Dioxide 29 Anion Gap 11.0 BUN 33 H Creatinine 1.4 H Estimated GFR (MDRD) 53 L Glucose 141 H Calcium 9.3 Total Bilirubin 0.5 AST 32 ALT 53 Alkaline Phosphatase 51 Total Protein 7.7 Albumin 4.8 Globulin 2.9 Albumin/Globulin Ratio 1.7 Lipase 32 Urine Color YELLOW Urine Clarity CLEAR Urine pH 5.5 Ur Specific [place] >=1.030 H Urine Protein NEGATIVE Urine Glucose (UA) NEGATIVE Urine Ketones NEGATIVE Urine Occult Blood NEGATIVE Urine Nitrite NEGATIVE Urine Bilirubin NEGATIVE Urine Urobilinogen 0.2 (NORMAL) Ur Leukocyte Esterase NEGATIVE Ur Microscopic Review NOT INDICATED Urine Culture Comments NOT INDICATED PD MEDICAL DECISION MAKING - ED course ED course: 53-year-old gentleman with renal colic presents with obvious exacerbation of same. He was eventually pain-free after divided doses of pain medications here. Departure - Departure Disposition: 01 Home, Self Care Clinical Impression: Ureterolithiasis Condition: Good Record reviewed to determine appropriate education?: Yes Instructions: ED Stone Renal W Colic Prescriptions: Ibuprofen [Motrin] 800 mg PO Q8H PRN #30 tablet PRN Reason: PAIN &/OR FEVER Oxycodone HCl/Acetaminophen [Percocet 5-325 mg Tablet] 1 - 2 each PO Q6H PRN #20 tablet PRN Reason: pain Tamsulosin [Flomax] 0.4 mg PO DAILY #14 capsule Comments: Follow-up with your doctor next week if still having symptoms. Return if worse. Strain your urine as discussed and deliver any results to your primary care physician. Do not drink or drive while taking narcotic pain medication. Note that many narcotic pain relievers also contain Tylenol/acetaminophen. Please ensure that your total dose of acetaminophen from all sources does not exceed 3 g (3000 mg) per day. You may get constipated while on this medication. Take a stool softener such as Colace twice a day while you are on it. Also add an [id number] laxative such as senna or MiraLAX on any day that you do not have a bowel movement. If you received a narcotic pain medication or sedative while in the emergency department, do not drive for the next 24 hours.
[2019-05-16 19:02] LABS: BASOPHILS % (AUTO) 0.3 %; EOSINOPHILS # (AUTO) 0.2 10^3/uL (0.0-0.7); EOSINOPHILS % (AUTO) 2.2 %; HGB - HEMOGLOBIN 15.4 g/dL (14.0-18.0); LYMPHOCYTES # (AUTO) 2.4 10^3/uL (1.5-3.5); LYMPHOCYTES % (AUTO) 33.6 %; MEAN CORPUSCULAR HEMOGLOBIN 31.9 pg (27.0-31.0); MEAN CORPUSCULAR HGB CONC 33.7 g/dL (32.0-36.0); MEAN CORPUSCULAR VOLUME 94.6 fL (80.0-94.0); MEAN PLATELET VOLUME 10.7 fL (7.4-11.4); MONOCYTES # (AUTO) 0.7 10^3/uL (0.0-1.0); NEUTROPHILS % (AUTO) 54.6 %; PLT - PLATELET COUNT 235 10^3/uL (130-450); RED BLOOD COUNT 4.83 10^6/uL (4.70-6.10); WHITE BLOOD COUNT 7.3 x10^3/uL (4.8-10.8)
[2019-05-16 19:05] LABS: BILIRUBIN,URINE NEGATIVE (NEGATIVE); GLUCOSE, URINE (UA) NEGATIVE (NEGATIVE); KETONES,URINE (UA) NEGATIVE (NEGATIVE); LEUKOCYTE ESTERASE, URINE NEGATIVE (NEGATIVE); NITRITE,URINE NEGATIVE (NEGATIVE); OCCULT BLOOD,URINE NEGATIVE (NEGATIVE); PH,URINE 5.5 PH (5.0-7.5); PROTEIN,URINE NEGATIVE (NEGATIVE); UROBILINOGEN,URINE 0.2 (NORMAL) E.U./dL (NORMAL)
[2019-05-16] MEDS ORDERED: LIDOCAINE-MPF 2% 8 ML in SODIUM CHLORIDE 0.9% 50 ML IV STA (19:07)
[2019-05-16 19:08] LABS: CLARITY,URINE CLEAR (CLEAR)
[2019-05-16 19:15] LABS: ALBUMIN 4.8 g/dL (3.2-5.5); ALBUMIN/GLOBULIN RATIO 1.7 (1.0-2.2); BILIRUBIN,TOTAL 0.5 mg/dL (0.2-1.0); CALCIUM 9.3 mg/dL (8.5-10.3); CREATININE 1.4 mg/dL (0.6-1.2); TOTAL PROTEIN 7.7 g/dL (6.7-8.2)
[2019-05-16] MEDS ORDERED: TAMSULOSIN 0.4 MG CAPSULE PO STA (20:12)
[2019-05-16] MEDS ORDERED: MORPHINE 2 MG/ML CARPUJECT IVP STA (20:13)
[2019-05-16] MEDS ORDERED: oxyCODONE/ACET 5/325 Prepack 4 PO STA (21:01)
[2019-05-16 21:09] VITALS: BP 142/90
== END 2019-05-16 21:10 | disposition home or self-care (01) ==
LOC: ED 18:25
DX: N20.1 Calculus of ureter (principal); Z87.442 Personal history of urinary calculi; I10 Essential (primary) hypertension; Z79.82 Long term (current) use of aspirin
CPT/HCPCS: 36415; 80053; 81003; 83690; 85025; 96365; 96375; 96376; 99284; 99285; A9270; J1170; J7040; 81001; 87086

== ENCOUNTER 2019-05-26 12:30 | Outpatient (CLI) | payer OTHER ==
[2019-05-29 16:14] LABS: NIDUS Not Observed; SPECIMEN SOURCE KIDNEY; STONE WEIGHT 0.009 g
== END 2019-05-26 23:59 | disposition home or self-care (01) ==
LOC: LAB.R 12:30
PROVIDERS: ATTEND Family Medicine
DX: N20.0 Calculus of kidney (principal)
CPT/HCPCS: 82365

== ENCOUNTER 2019-05-26 14:01 | Outpatient (CLI) | payer OTHER ==
--- NOTE | 2019-05-26 15:14 | XRAY Report ---
Reason: KIDNEY STONE Procedure Date: 05/26/2019 Accession Number: [id number] / [id number] Procedure: WCP - Abdomen 1 View X-Ray CPT Code: 02080 Final Report FULL RESULT: EXAM: ABDOMEN RADIOGRAPHY EXAM DATE: 05/26/2019 02:01 PM. CLINICAL HISTORY: Kidney stone. COMPARISON: CT ABDOMEN/PELVIS W/O 09/28/2018 4:16 AM. TECHNIQUE: 1 view. FINDINGS: Bowel Gas Pattern: Within normal limits. No dilated loops. Other: No radiopaque urinary collecting system calculi detected. Mild to moderate multilevel osteophytic spurring of the lumbar spine. IMPRESSION: No radiopaque urinary collecting system calculi identified. RADIA
== END 2019-05-26 14:02 | disposition home or self-care (01) ==
LOC: DI.WCP 14:01
PROVIDERS: ATTEND Family Medicine
DX: N20.0 Calculus of kidney (principal)
CPT/HCPCS: 74018

== ENCOUNTER 2020-08-10 08:00 | Outpatient (CLI) | payer OTHER ==
[2020-08-10 13:05] LABS: BASOPHILS % (AUTO) 0.2 %; EOSINOPHILS % (AUTO) 0.8 %; HCT - HEMATOCRIT 49.4 % (42.0-52.0); HGB - HEMOGLOBIN 16.3 g/dL (14.0-18.0); LYMPHOCYTES # (AUTO) 1.2 10^3/uL (1.5-3.5); LYMPHOCYTES % (AUTO) 25.2 %; MEAN CORPUSCULAR HEMOGLOBIN 31.7 pg (27.0-31.0); MEAN CORPUSCULAR VOLUME 95.9 fL (80.0-94.0); MEAN PLATELET VOLUME 10.9 fL (7.4-11.4); MONOCYTES # (AUTO) 0.5 10^3/uL (0.0-1.0); MONOCYTES % (AUTO) 9.4 %; NEUTROPHILS # (AUTO) 3.1 10^3/uL (1.5-6.6); NEUTROPHILS % (AUTO) 64.2 %; PLT - PLATELET COUNT 230 10^3/uL (130-450); RED BLOOD COUNT 5.15 10^6/uL (4.70-6.10); RED CELL DISTRIBUTION WIDTH 13.2 % (12.0-15.0); WHITE BLOOD COUNT 4.9 x10^3/uL (4.8-10.8)
[2020-08-10 13:54] LABS: ALBUMIN 4.5 g/dL (3.2-5.5); ALBUMIN/GLOBULIN RATIO 1.5 (1.0-2.2); ALKALINE PHOSPHATASE 63 IU/L (42-121); ALT ALANINE AMINOTRANSFERASE 29 IU/L (10-60); AST ASPARTATE AMINOTRANSFERASE 23 IU/L (10-42); BILIRUBIN,TOTAL 0.6 mg/dL (0.2-1.0); BUN - BLOOD UREA NITROGEN 20 mg/dL (6-20); CALCIUM 9.7 mg/dL (8.5-10.3); CARBON DIOXIDE - CO2 28 mmol/L (21-32); CHLORIDE 101 mmol/L (101-111); CHOL/HDL RATIO 5.8 (<5.0); CHOLESTEROL 273 mg/dL; CREATININE 1.2 mg/dL (0.6-1.2); GFR - MDRD 63 (>89); GLUCOSE 124 mg/dL (70-100); HDL CHOLESTEROL 47 mg/dL; LDL CHOLESTEROL,CALCULATED 181 mg/dL; LDL/HDL RATIO 3.9 (<3.6); POTASSIUM 4.2 mmol/L (3.5-5.0); SODIUM 138 mmol/L (135-145); TOTAL PROTEIN 7.6 g/dL (6.7-8.2); TRIGLYCERIDES 225 mg/dL; VLDL CHOLESTEROL 45 mg/dL
[2020-08-10 13:59] LABS: THYROID STIMULATING HORMONE 2.21 uIU/mL (0.34-5.60)
== END 2020-08-10 23:59 | disposition home or self-care (01) ==
LOC: LAB.WCP 08:00
PROVIDERS: ATTEND Family Medicine
DX: E78.5 Hyperlipidemia, unspecified (principal); I10 Essential (primary) hypertension; Z12.5 Encounter for screening for malignant neoplasm of prostate
CPT/HCPCS: 36415; 80053; 80061; 83721; 84153; 84443; 85025

== ENCOUNTER 2022-04-24 06:52 | Outpatient (CLI) | payer OTHER ==
[2022-04-24 10:29] LABS: RHEUMATOID FACTOR NEGATIVE (Negative)
[2022-04-25 04:08] LABS: RPR Non Reactive (Non Reactive)
[2022-04-25 15:09] LABS: ANTI-DNA (DS) AB QN 1 IU/mL (0-9); CENTROMERE B ANTIBODIES <0.2 AI (0.0-0.9); CHROMATIN ANTIBODIES <0.2 AI (0.0-0.9); JO-1 AB <0.2 AI (0.0-0.9); RIBOSOMAL P ANTIBODIES <0.2 AI (0.0-0.9); RNP ANTIBODIES <0.2 AI (0.0-0.9); SCLERODERMA-70 ANTIBODIES <0.2 AI (0.0-0.9); SJOGREN'S ANTI-SS-A <0.2 AI (0.0-0.9); SJOGREN'S ANTI-SS-B <0.2 AI (0.0-0.9); SMITH ANTIBODIES <0.2 AI (0.0-0.9); SMITH/RNP ANTIBODIES <0.2 AI (0.0-0.9)
[2022-04-26 04:09] LABS: ANGIOTENSIN-CONVERTING ENZYME 32 U/L (14-82)
== END 2022-04-24 06:53 | disposition home or self-care (01) ==
LOC: LAB 06:52
PROVIDERS: ATTEND Physician Assistant
DX: H15.001 Unspecified scleritis, right eye (principal)
CPT/HCPCS: 36415; 81374; 82164; 86225; 86235; 86430; 86592

== ENCOUNTER 2022-10-12 09:54 | Outpatient (CLI) | payer OTHER ==
--- NOTE | 2022-10-12 17:38 | XRAY Report ---
PROCEDURE: Abdomen 2 View X-Ray INDICATIONS: FLANK PAIN TECHNIQUE: 2 views of the abdomen were acquired. COMPARISON: None. FINDINGS: Surgical changes and devices: Cholecystectomy clips Bowel: No pneumoperitoneum. The bowel gas pattern is normal. Stool load within normal limits. Soft tissues: No masses; visualized solid organ contours appear normal in size. No suspicious abdom inal calcifications. Bones: No suspicious bony abnormalities. IMPRESSION: No renal calcifications identified. No acute process identified. Reviewed by: Ovi Mccray MD on 10/12/2022 5:37 PM PDT Approved by: Ovi Mccray MD on 10/12/2022 5:37 PM PDT Station ID: [id number]
== END 2022-10-12 09:55 | disposition home or self-care (01) ==
LOC: DI 09:54
PROVIDERS: ATTEND Physician Assistant
DX: R10.9 Unspecified abdominal pain (principal)

== ENCOUNTER 2022-10-30 08:22 | Outpatient (CLI) | payer OTHER ==
[2022-10-30] MEDS ORDERED: iohexoL-300 100 ML VIAL IVP ONE (08:54)
--- NOTE | 2022-10-30 10:39 | CT Report ---
PROCEDURE: IVP INDICATIONS: LEFT FLANK PAIN CONTRAST: 140ml Omni 300 TECHNIQUE: After the administration of intravenous contrast, 5 mm thick sections acquired from the diaphragms to the symphysis. 5 mm thick coronal and sagittal reformats were acquired. For radiation dose reducti on, the following was used: automated exposure control, adjustment of mA and/or kV according to maya ent size. COMPARISON: CT 10/23/2022 FINDINGS: Image quality: Excellent. Urinary system: Both kidneys are normal in size. No hydronephrosis or nephrolithiasis on pre-contras t images. No solid masses or complex cysts which require follow up. The opacified renal calyces and ureters appear normal, without filling defect. Bladder wall thickness is normal, accounting for unde rdistention. No calcified bladder stones. No filling defect within the opacified bladder. OTHER Lung bases and heart: Unremarkable. Liver: Hepatic steatosis. Gallbladder and biliary tree: Surgically absent. No biliary dilation, accounting for post-cholecystec rosemary state. Spleen: No splenomegaly. Pancreas: No pancreatic ductal dilation. Adrenals: No adrenal nodule. Bowel and peritoneum: No bowel distension. No pathologic free fluid. Diverticulosis without evidence of diverticulitis. Abdominal Lymph nodes: No central or retroperitoneal adenopathy. Vessels: Unremarkable. Reproductive organs: Small testicular hydroceles. Pelvic Lymph nodes: Unremarkable. Bones: No aggressive osseous abnormality. Other: None. IMPRESSION: No filling defect within the opacified renal collecting systems or ureters. Urinary bladder is incomp letely distended with contrast. No nephrolithiasis. Small testicular hydroceles. Hepatic steatosis. Reviewed by: Phuc Corrales on 10/30/2022 10:37 AM PDT Approved by: Phuc Corrales on 10/30/2022 10:37 AM PDT Station ID: [id number]
== END 2022-10-30 08:23 | disposition home or self-care (01) ==
LOC: DI 08:22
PROVIDERS: ATTEND Physician Assistant
DX: R10.9 Unspecified abdominal pain (principal); N43.3 Hydrocele, unspecified; K76.0 Fatty (change of) liver, not elsewhere classified
CPT/HCPCS: 74178; Q9967

== ENCOUNTER 2023-04-25 10:45 | Outpatient (CLI) | payer OTHER ==
[2023-04-25 18:14] LABS: CALCIUM 9.8 mg/dL (8.5-10.3); CREATININE 1.1 mg/dL (0.6-1.3)
== END 2023-04-25 11:00 | disposition home or self-care (01) ==
LOC: LAB.N 10:45
PROVIDERS: ATTEND Family Medicine
DX: I10 Essential (primary) hypertension (principal)
CPT/HCPCS: 36415; 80048